=== PATIENT | female | born 1970 | race Hispanic/Latino ===

== ENCOUNTER 2019-02-24 09:00 | Day surgery (SDC) | payer MEDICAID ==
[~2019-02-24] VITALS: Ht 154.9 cm; Wt 143.8 kg
[~2019-02-24 09:00] MED LIST: ACET-2743 PO; AEC81 PO; DULA1.5P SQ; FLUT1DIS3 IH; INSLAN SQ; IRON PO; LISI1TAB29 PO; METF-444 PO; SODIUM CHLORIDE 0.9% 1000ML 1,000 ML IV ONE
[2019-02-24 10:10] VITALS: BP 126/64
[2019-02-24] MEDS ORDERED: FERS325 PO ×2 (10:44)
[2019-02-24] MEDS ORDERED: NAPR250T4 PO ×2 (10:44)
[2019-02-24] MEDS ORDERED: TRAV2.5D OD ×2 (10:44)
[2019-02-24] MEDS ORDERED: OMEP40CA13 PO ×2 (10:44)
[2019-02-24] MEDS ORDERED: EMPA25TA PO ×2 (10:44)
[2019-02-24] MEDS ORDERED: ATOR40TA71 PO ×2 (10:44)
[2019-02-24] MEDS ORDERED: PROPOFOL 10 MG/ML 20ML VIAL IV ONE (11:16)
[2019-02-24 11:33] VITALS: BP 119/70
[2019-02-24 11:40] VITALS: BP 119/71
[2019-02-24 11:45] VITALS: BP 102/61
== END 2019-02-24 12:01 | disposition home or self-care (01) ==
LOC: DAH 09:00 → EDSTATUS 12:47
PROVIDERS: ATTEND Internal Medicine
DX: R10.13 Epigastric pain (principal); K44.9 Diaphragmatic hernia without obstruction or gangrene; K29.40 Chronic atrophic gastritis without bleeding; J45.909 Unspecified asthma, uncomplicated; I10 Essential (primary) hypertension; E78.5 Hyperlipidemia, unspecified; E11.9 Type 2 diabetes mellitus without complications; E66.01 Morbid (severe) obesity due to excess calories; Z79.84 Long term (current) use of oral hypoglycemic drugs; Z79.899 Other long term (current) drug therapy; Z79.82 Long term (current) use of aspirin
CPT/HCPCS: 43239; 82948 ×2; 88305; A4215; A4221; A4222; A4223; A4606; A4615; A4663; J2704; J7030

== ENCOUNTER → 2019-02-25 | Outpatient (CLI) | payer MEDICAID ==
[~2019-02-25] MED LIST changes: +ATOR40TA71 PO; +EMPA25TA PO; +FERS325 PO; +NAPR250T4 PO; +OMEP40CA13 PO; -SODIUM CHLORIDE 0.9% 1000ML 1,000 ML IV ONE; +TRAV2.5D OD
== END | disposition home or self-care (01) ==
LOC: RAH 02-21 10:09
PROVIDERS: ATTEND Internal Medicine
DX: R14.0 Abdominal distension (gaseous) (principal); R11.2 Nausea with vomiting, unspecified; R10.9 Unspecified abdominal pain
CPT/HCPCS: 78264; A9541

== ENCOUNTER → 2019-04-16 | Outpatient (CLI) | payer MEDICAID ==
[~2019-04-16] MED LIST changes: -ACET-2743 PO; -IRON PO
== END | disposition home or self-care (01) ==
LOC: RAH 09:09
PROVIDERS: ATTEND Family Medicine
DX: Z12.31 Encounter for screening mammogram for malignant neoplasm of breast (principal)
CPT/HCPCS: 77067

== ENCOUNTER 2019-09-15 10:28 | Day surgery (SDC) | payer MEDICAID ==
[~2019-09-15] VITALS: Ht 152.4 cm; Wt 140.6 kg
[~2019-09-15 10:28] MED LIST changes: -INSLAN SQ; -NAPR250T4 PO; -OMEP40CA13 PO; +SODIUM CHLORIDE 0.9% 1000ML 1,000 ML IV ONE
[2019-09-15] MEDS ORDERED: PROPOFOL 10 MG/ML 20ML VIAL IV ONE (12:51)
[2019-09-15 13:05] VITALS: BP 110/55
[2019-09-15 13:10] VITALS: BP 116/62
[2019-09-15 13:15] VITALS: BP 116/70
[2019-09-15 13:20] VITALS: BP 120/70
[2019-09-15 13:25] VITALS: BP 118/65
== END 2019-09-15 14:00 | disposition home or self-care (01) ==
LOC: DAH 10:28 → ENDO 10:28
PROVIDERS: ATTEND Surgery
DX: K21.9 Gastro-esophageal reflux disease without esophagitis (principal)
CPT/HCPCS: 43235; 82948 ×2; A4215; A4221; A4222; A4223; A4606; A4620; A4657; A4663; J2704; J7030; 43239

== ENCOUNTER 2019-10-07 06:11 | Day surgery (SDC) | payer MEDICAID ==
[~2019-10-07] VITALS: Ht 154.9 cm; Wt 142.4 kg
[~2019-10-07 06:11] MED LIST changes: -SODIUM CHLORIDE 0.9% 1000ML 1,000 ML IV ONE
[2019-10-07] MEDS ORDERED: SODIUM CHLORIDE 0.9% 1000ML 1,000 ML IV ONE (06:21)
[2019-10-07 07:44] VITALS: BP 127/75
[2019-10-07] MEDS ORDERED: PROPOFOL 10 MG/ML 20ML VIAL IV ONE ×3 (08:27→08:29)
[2019-10-07 08:43] VITALS: BP 107/59
[2019-10-07 08:48] VITALS: BP 115/60
[2019-10-07 08:54] VITALS: BP 118/62
[2019-10-07 09:01] VITALS: BP 119/56
[2019-10-07 09:10] VITALS: BP 137/68
== END 2019-10-07 09:13 | disposition home or self-care (01) ==
LOC: ENDO 06:11
PROVIDERS: ATTEND Internal Medicine
DX: Z12.11 Encounter for screening for malignant neoplasm of colon (principal); Z11.59 Encounter for screening for other viral diseases; D12.0 Benign neoplasm of cecum; K57.30 Diverticulosis of large intestine without perforation or abscess without bleeding; K64.0 First degree hemorrhoids; I10 Essential (primary) hypertension; J45.909 Unspecified asthma, uncomplicated; E11.9 Type 2 diabetes mellitus without complications; E78.5 Hyperlipidemia, unspecified; Z79.82 Long term (current) use of aspirin; Z79.899 Other long term (current) drug therapy; Z79.84 Long term (current) use of oral hypoglycemic drugs; Z82.49 Family history of ischemic heart disease and other diseases of the circulatory system; Z83.3 Family history of diabetes mellitus; Z90.49 Acquired absence of other specified parts of digestive tract
CPT/HCPCS: 36415; 45380; 82948 ×2; 87635; 88305; A4215 ×2; A4221; A4222; A4223; A4606; A4620; A4663; J2704 ×3; J7030; 43200; 43236

== ENCOUNTER 2019-12-19 12:07 | Inpatient (IN) | payer MEDICAID ==
[~2019-12-19] VITALS: Ht 154.9 cm; Wt 122.5 kg
[2019-12-19] MEDS ORDERED: ONDANSETRON HCL 4 MG/2 ML VIAL ONE ×2 (12:28→18:51)
[2019-12-19 12:35] LABS: BASOPHILS % (AUTO) 0.4 % (0.0-5.0); EOSINOPHILS % (AUTO) 0.1 % (0.0-8.0); HEMATOCRIT 43.5 % (36-48); LYMPHOCYTES % (AUTO) 17.6 % (21.0-51.0); MEAN CORPUSCULAR HEMOGLOBIN 27.6 pg (27.0-33.0); MEAN CORPUSCULAR VOLUME 86.5 fL (79-99); MONOCYTES % (AUTO) 8.5 % (3.0-13.0); NEUTROPHILS % (AUTO) 73.1 % (40.0-77.0); PLATELET COUNT (AUTO) 262 K/uL (130-400); RED BLOOD CELL COUNT(AUTO) 5.03 MIL/uL (4.00-5.50); RED CELL DISTRIBUTION WIDTH 16.6 % (11.0-15.5); WHITE BLOOD COUNT (AUTO) 7.6 K/uL (4.8-10.8)
[2019-12-19 13:02] LABS: ALBUMIN 3.5 g/dL (3.5-5.0); BILIRUBIN,TOTAL 1.2 mg/dL (0.2-1.0); CREATININE 0.8 mg/dL (0.5-1.5); POTASSIUM 2.5 mmol/L (3.5-5.1); TOTAL PROTEIN, SERUM 8.4 g/dL (6.0-8.3)
[2019-12-19] MEDS ORDERED: POTASSIUM CHLORIDE 20MEQ/100ML 100 ML IV ONE ×2 (13:15→16:42)
[2019-12-19] MEDS ORDERED: LIDOCAINE HCL-MPF 1% 2ML VIAL ONE (13:15)
[2019-12-19] MEDS ORDERED: MAGNESIUM SULFATE 1 GM in SODIUM CHLORIDE 0.9% 50 ML IV SCH (15:30)
[2019-12-19 15:45] LABS: CREATININE 0.8 mg/dL (0.5-1.5)
[2019-12-19 15:48] LABS: POTASSIUM 2.4 mmol/L (3.5-5.1)
[2019-12-19 17:58] LABS: APPEARANCE,URINE CLOUDY (CLEAR); BILIRUBIN,URINE LARGE (NEGATIVE); COLOR,URINE YELLOW (YELLOW); GLUCOSE, URINE (UA) NEGATIVE (NEGATIVE); KETONES,URINE 40 mg/dL (NEGATIVE); LEUKOCYTE ESTERASE ,URINE MODERATE (NEGATIVE); NITRATE,URINE POSITIVE (NEGATIVE); OCCULT BLOOD,URINE TRACE-LYSED (NEGATIVE); PROTEIN,URINE 30 mg/dL (NEGATIVE)
[2019-12-19 18:10] LABS: BACTERIA,URINE Moderate /HPF (None Seen)
[2019-12-19 18:11] LABS: SQUAMOUS EPITHELIAL CELL,UR Few /HPF (0-2)
[2019-12-19 18:12] LABS: MUCUS,URINE Rare LPF (None Seen)
[2019-12-19] MEDS ORDERED: CEFTRIAXONE SODIUM 1 GM ONE (19:02)
[2019-12-19 19:11] LABS: CREATININE 0.8 mg/dL (0.5-1.5)
[2019-12-19 19:15] LABS: POTASSIUM 2.4 mmol/L (3.5-5.1)
[2019-12-19] MEDS ORDERED: SODIUM CHLORIDE 0.9% 1000ML 1,000 ML IV SCH (19:37)
[2019-12-19] MEDS ORDERED: ACETAMINOPHEN 325 MG TAB PO PRN ×2 (19:45)
[2019-12-19] MEDS ORDERED: IOHEXOL 350 MG/ML 100ML INFUS..BTL IV ONE (20:21)
[2019-12-19] MEDS: CEFTRIAXONE SODIUM 1 GM IVP SCH (20:45)
[2019-12-19] MEDS: INSULIN HUMULIN R 100 UNIT/ML 3ML SQ SCH (21:00)
[2019-12-19 21:25] VITALS: BP 120/56
[2019-12-19 23:32] VITALS: BP 117/61
[2019-12-20] MEDS ORDERED: MAGNESIUM 2GM PREMIX 50ML 50 ML IV ONE
[2019-12-20] MEDS ORDERED: NS-20 MEQ KCL 1000ML 1,000 ML IV ONE (00:08)
[2019-12-20] MEDS: ONDANSETRON HCL 4 MG/2 ML VIAL IV PRN (00:09)
[2019-12-20] MEDS: POTASSIUM CHLORIDE 20MEQ/100ML 100 ML IV PRN ×5 (01:25→22:11)
[2019-12-20 03:46] VITALS: BP 115/59
--- NOTE | 2019-12-20 04:22 | NUR ---
Patient received from ED accompanied by staff to room 329. Patient assisted to bed and made comfortable. Assessment and nursing data base completed. Ns + 20K started on admission. All meds given as ordered. Patient says she give her med list to her ED nurse, but reporting nurse says pt may have given med list to day shift nurse and cannot be found. Patient encouraged to ask family to send med list. She is in stable condition with no acute distress at this time.
[2019-12-20 05:02] LABS: HEMATOCRIT 38.7 % (36-48); MEAN CORPUSCULAR HEMOGLOBIN 27.9 pg (27.0-33.0); MEAN CORPUSCULAR HGB CONC 31.8 g/dL (32.0-36.0); MEAN CORPUSCULAR VOLUME 87.8 fL (79-99); RED BLOOD CELL COUNT(AUTO) 4.41 MIL/uL (4.00-5.50); RED CELL DISTRIBUTION WIDTH 16.7 % (11.0-15.5); WHITE BLOOD COUNT (AUTO) 5.7 K/uL (4.8-10.8)
[2019-12-20 05:30] LABS: CREATININE 0.8 mg/dL (0.5-1.5); MAGNESIUM 3.3 mg/dL (1.80-2.40)
[2019-12-20 05:32] LABS: POTASSIUM 2.3 mmol/L (3.5-5.1)
[2019-12-20] MEDS: POTASSIUM CHLORIDE 10% ELIXIR 20 MEQ/15 ML UDCUP PO PRN (06:07)
[2019-12-20] MEDS: NS-20 MEQ KCL 1000ML 1,000 ML IV SCH ×3 (06:55→16:11)
[2019-12-20] MEDS: INSULIN HUMULIN R 100 UNIT/ML 3ML SQ SCH ×4 (07:07→20:35)
[2019-12-20] MEDS: FAMOTIDINE/PF 20 MG/2 ML VIAL IV SCH ×3 (07:52→20:18)
[2019-12-20 08:37] VITALS: BP 125/72
[2019-12-20 11:41] VITALS: BP 125/70
--- NOTE | 2019-12-20 15:27 | NUR ---
INITIAL: Call placed to patients room. DC discussed w pt, she mentions that she lives w her sister Tanja. Prior to admission she was independent w ambulation and ADLs. She owns a walker and sh chair. Pt was also receiving provider services approx. 21hr/week. Pt states that she was previously attending [facility] however has not gone in over 2weeks. She mentions that her sister Tanja provides transportation where needed and she feels safe and comfortable to return home at [place]. CM to continue to follow and wait for Md recommendations. Addendum: 12/20/19 at 1534 by JESSICA BRUNO Amended: Links added.
[2019-12-20 16:24] VITALS: BP 126/62
[2019-12-20] MEDS: CEFTRIAXONE SODIUM 1 GM IVP SCH (20:18)
[2019-12-20 20:38] VITALS: BP 134/57
--- NOTE | 2019-12-20 21:30 | NUR ---
potassium rechecked: 3.0 Administered potassium per protocol.
[2019-12-20] MEDS ORDERED: LIDOCAINE HCL-MPF 1% 2ML VIAL ONE (22:07)
[2019-12-20 23:45] VITALS: BP 129/64
[2019-12-21] MEDS: NS-20 MEQ KCL 1000ML 1,000 ML IV SCH ×3 (02:00→23:06)
[2019-12-21 04:00] VITALS: BP 118/65
[2019-12-21 05:33] LABS: BASOPHILS % (AUTO) 0.2 % (0.0-5.0); EOSINOPHILS % (AUTO) 1.9 % (0.0-8.0); HEMATOCRIT 39.4 % (36-48); LYMPHOCYTES % (AUTO) 29.1 % (21.0-51.0); MEAN CORPUSCULAR HGB CONC 31.7 g/dL (32.0-36.0); MEAN CORPUSCULAR VOLUME 88.3 fL (79-99); MONOCYTES % (AUTO) 9.9 % (3.0-13.0); NEUTROPHILS % (AUTO) 58.7 % (40.0-77.0); PLATELET COUNT (AUTO) 172 K/uL (130-400); RED BLOOD CELL COUNT(AUTO) 4.46 MIL/uL (4.00-5.50); RED CELL DISTRIBUTION WIDTH 16.9 % (11.0-15.5); WHITE BLOOD COUNT (AUTO) 4.2 K/uL (4.8-10.8)
[2019-12-21] MEDS: INSULIN HUMULIN R 100 UNIT/ML 3ML SQ SCH ×2 (05:36→11:30)
[2019-12-21 06:24] LABS: HEMOGLOBIN A1C 5.9 % (4.0-6.0)
[2019-12-21 06:30] LABS: ALBUMIN 2.6 g/dL (3.5-5.0); BILIRUBIN,TOTAL 0.7 mg/dL (0.2-1.0); CREATININE 0.7 mg/dL (0.5-1.5); TOTAL PROTEIN, SERUM 6.3 g/dL (6.0-8.3)
--- NOTE | 2019-12-21 06:34 | NUR ---
potassium: 2.9 Covered potassium per protocol. Day shift RN made aware. No apparent distress / discomfort noted.
[2019-12-21 06:35] LABS: POTASSIUM 2.9 mmol/L (3.5-5.1)
[2019-12-21] MEDS ORDERED: LIDOCAINE HCL-MPF 1% 2ML VIAL ONE (06:43)
[2019-12-21] MEDS: POTASSIUM CHLORIDE 20MEQ/100ML 100 ML IV PRN ×3 (06:45→22:13)
[2019-12-21] MEDS: FAMOTIDINE/PF 20 MG/2 ML VIAL IV SCH ×2 (08:13→20:02)
[2019-12-21 09:05] VITALS: BP 136/73
[2019-12-21 11:43] VITALS: BP 125/59
[2019-12-21 16:23] VITALS: BP 149/73
[2019-12-21 19:00] VITALS: BP 137/71
[2019-12-21] MEDS ORDERED: LIDOCAINE HCL-MPF 1% 2ML VIAL IV SCH (20:00)
[2019-12-21] MEDS: CEFTRIAXONE SODIUM 1 GM IVP SCH (20:02)
[2019-12-22] VITALS: BP 145/77
[2019-12-22 03:43] VITALS: BP 139/75
[2019-12-22 06:26] LABS: BASOPHILS % (AUTO) 0.4 % (0.0-5.0); EOSINOPHILS % (AUTO) 2.3 % (0.0-8.0); LYMPHOCYTES % (AUTO) 27.5 % (21.0-51.0); MEAN CORPUSCULAR HEMOGLOBIN 27.9 pg (27.0-33.0); MEAN CORPUSCULAR VOLUME 89.9 fL (79-99); NEUTROPHILS % (AUTO) 60.4 % (40.0-77.0); PLATELET COUNT (AUTO) 173 K/uL (130-400); RED BLOOD CELL COUNT(AUTO) 4.45 MIL/uL (4.00-5.50); RED CELL DISTRIBUTION WIDTH 17.1 % (11.0-15.5); WHITE BLOOD COUNT (AUTO) 4.8 K/uL (4.8-10.8)
[2019-12-22] MEDS: ONDANSETRON HCL 4 MG/2 ML VIAL IV PRN ×3 (07:00→20:47)
[2019-12-22 07:39] VITALS: BP 122/55
[2019-12-22 08:01] LABS: ALBUMIN 2.6 g/dL (3.5-5.0); BILIRUBIN,TOTAL 0.5 mg/dL (0.2-1.0); CREATININE 0.8 mg/dL (0.5-1.5); POTASSIUM 3.8 mmol/L (3.5-5.1); TOTAL PROTEIN, SERUM 6.3 g/dL (6.0-8.3)
[2019-12-22] MEDS: FAMOTIDINE/PF 20 MG/2 ML VIAL IV SCH ×2 (10:11→20:47)
[2019-12-22 10:24] VITALS: BP 128/69
[2019-12-22] MEDS: NS-20 MEQ KCL 1000ML 1,000 ML IV SCH ×2 (12:26→20:47)
--- NOTE | 2019-12-22 15:16 | NUR ---
Transfer Patient Covid results negative and she has been transfered to [facility], AAOX4 and condition stable.
[2019-12-22 16:00] VITALS: BP 123/64
[2019-12-22 19:30] VITALS: BP 153/75
[2019-12-22] MEDS: CEFTRIAXONE SODIUM 1 GM IVP SCH (20:47)
[2019-12-22] MEDS: HYDROMORPHONE 1 MG/1 ML AMP IVP PRN (22:04)
[2019-12-23] VITALS (7 sets, daily range): BP systolic 136–163; BP diastolic 68–87
[2019-12-23] MEDS: HYDROMORPHONE 1 MG/1 ML AMP IVP PRN ×3 (00:47→04:59)
[2019-12-23] MEDS: ONDANSETRON HCL 4 MG/2 ML VIAL IV PRN (01:59)
[2019-12-23] MEDS: PROMETHAZINE HCL 25 MG/ML 1ML AMPULE IM SCH (02:56)
[2019-12-23 05:06] LABS: BASOPHILS % (AUTO) 0.3 % (0.0-5.0); EOSINOPHILS % (AUTO) 2.1 % (0.0-8.0); HEMATOCRIT 37.3 % (36-48); LYMPHOCYTES % (AUTO) 9.3 % (21.0-51.0); MEAN CORPUSCULAR HEMOGLOBIN 28.6 pg (27.0-33.0); MEAN CORPUSCULAR HGB CONC 31.6 g/dL (32.0-36.0); MEAN CORPUSCULAR VOLUME 90.3 fL (79-99); MONOCYTES % (AUTO) 6.4 % (3.0-13.0); NEUTROPHILS % (AUTO) 81.4 % (40.0-77.0); PLATELET COUNT (AUTO) 133 K/uL (130-400); RED BLOOD CELL COUNT(AUTO) 4.13 MIL/uL (4.00-5.50); RED CELL DISTRIBUTION WIDTH 17.4 % (11.0-15.5); WHITE BLOOD COUNT (AUTO) 3.8 K/uL (4.8-10.8)
[2019-12-23 05:33] LABS: ALBUMIN 2.6 g/dL (3.5-5.0); BILIRUBIN,TOTAL 0.5 mg/dL (0.2-1.0); CREATININE 0.8 mg/dL (0.5-1.5); POTASSIUM 3.5 mmol/L (3.5-5.1); TOTAL PROTEIN, SERUM 6.3 g/dL (6.0-8.3)
[2019-12-23] MEDS: NS-20 MEQ KCL 1000ML 1,000 ML IV SCH (06:43)
[2019-12-23] MEDS: FAMOTIDINE/PF 20 MG/2 ML VIAL IV SCH ×2 (08:34→20:03)
[2019-12-23] MEDS: MEROPENEM 1 GM VIAL IVP SCH ×2 (11:43→18:53)
[2019-12-23] MEDS: METOCLOPRAMIDE 10 MG/2 ML VIAL IVP SCH ×2 (11:43→16:52)
--- NOTE | 2019-12-23 12:01 | NUR ---
RD NOTIFICATION Pt admitted with Hypokalemia, vomiting. Hx of Bariatric bypass procedure x 1-2mos. ago at [facility]. Pt received Bariatric nutrition education with [facility] dietitian, as per Pt. Patient reports history of Gastritis prior to procedure. Post procedure Gastritis medication was changed, Pt reports having nausea soon after finishing meals despite multiple medication modifications. Pt reports tolerating Clear Liquids post procedure. Pt did not transition from clear to full liquids, but proceeded directly to soft solid foods. Pt reports strong gag reflex to activities such as brushing teeth. Pt with intolerance to dairy products. Pt also says she vomits/gags up phlegm which is common for her and possibly related to her history of asthma. Recommend 60mL ProMod BID RD to monitor for tolerance.
[2019-12-23 12:07] LABS: INR 1.07 (0.85-1.15); PARTIAL THROMBOPLASTIN TIME 27.6 SEC (26.3-35.5); PROTHROMBIN TIME 11.5 SEC (9.6-11.6)
--- NOTE | 2019-12-23 14:32 | NUR ---
picc line 5 [place] 2 lumen picc line inserted to right upper arm using sterile technique. pt jerome well ,with no adverse reactions. picc line a 44cm insertion site and 6 cm exposed. sterile dressing applied to site. both ports flushed without difficulty and good blood return on both ports. pt denies any pain, numbness, tingling or any other discomforts to right arm. report given to primary nurse Daniella Adair LVN. picc line ready to use per xochitl kay protocol. tip placed at 1/3 of [facility] OR AT [facility]
[2019-12-23] MEDS: LACTATED RINGERS 1000ML 1,000 ML IV SCH (16:52)
[2019-12-23] MEDS: HYDROMORPHONE HCL 2 MG/ML VIAL IVP PRN ×2 (21:31→22:55)
[2019-12-24] MEDS: HYDROMORPHONE HCL 2 MG/ML VIAL IVP PRN ×4 (00:44→04:56)
[2019-12-24] MEDS: PROMETHAZINE HCL 25 MG/ML 1ML AMPULE IM SCH (01:56)
[2019-12-24] MEDS: MEROPENEM 1 GM VIAL IVP SCH ×3 (02:54→18:32)
[2019-12-24 03:56] VITALS: BP 136/72
[2019-12-24 06:00] LABS: ALBUMIN 2.6 g/dL (3.5-5.0); BILIRUBIN,TOTAL 0.5 mg/dL (0.2-1.0); CREATININE 0.8 mg/dL (0.5-1.5); MAGNESIUM 1.3 mg/dL (1.80-2.40); POTASSIUM 3.2 mmol/L (3.5-5.1); TOTAL PROTEIN, SERUM 6.4 g/dL (6.0-8.3)
[2019-12-24] MEDS: POTASSIUM CHLORIDE 10% ELIXIR 20 MEQ/15 ML UDCUP PO PRN (06:04)
[2019-12-24 08:00] VITALS: BP 150/78
[2019-12-24] MEDS ORDERED: MAGNESIUM 2GM PREMIX 50ML 50 ML IV SCH (08:45)
[2019-12-24] MEDS ORDERED: POTASSIUM CHLORIDE 10% ELIXIR 20 MEQ/15 ML UDCUP PO SCH (08:45)
[2019-12-24] MEDS: LACTATED RINGERS 1000ML 1,000 ML IV SCH ×2 (09:11→22:48)
[2019-12-24] MEDS: FAMOTIDINE/PF 20 MG/2 ML VIAL IV SCH ×2 (09:11→21:15)
[2019-12-24] MEDS: METOCLOPRAMIDE 10 MG/2 ML VIAL IVP SCH ×3 (09:11→17:10)
[2019-12-24 12:00] VITALS: BP 149/68
[2019-12-24 16:00] VITALS: BP 144/79
[2019-12-24 16:51] LABS: MAGNESIUM 1.9 mg/dL (1.80-2.40); POTASSIUM 3.3 mmol/L (3.5-5.1)
[2019-12-24] MEDS: POTASSIUM CHLORIDE 20MEQ/100ML 100 ML IV PRN (18:32)
[2019-12-24 19:30] VITALS: BP 154/76
[2019-12-25] VITALS (7 sets, daily range): BP systolic 108–153; BP diastolic 52–76
[2019-12-25] MEDS: PROMETHAZINE HCL 25 MG/ML 1ML AMPULE IM SCH (02:15)
[2019-12-25] MEDS: MEROPENEM 1 GM VIAL IVP SCH ×3 (02:30→20:43)
[2019-12-25] MEDS: LACTATED RINGERS 1000ML 1,000 ML IV SCH (03:04)
[2019-12-25 05:33] LABS: CREATININE 0.6 mg/dL (0.5-1.5); MAGNESIUM 1.6 mg/dL (1.80-2.40); POTASSIUM 3.1 mmol/L (3.5-5.1)
[2019-12-25] MEDS: METOCLOPRAMIDE 10 MG/2 ML VIAL IVP SCH ×3 (06:18→16:47)
[2019-12-25] MEDS: POTASSIUM CHLORIDE 20MEQ/100ML 100 ML IV PRN ×2 (06:19→09:58)
[2019-12-25] MEDS ORDERED: POTASSIUM CHLORIDE 20 MEQ ERTAB PO SCH (08:45)
[2019-12-25] MEDS: FAMOTIDINE/PF 20 MG/2 ML VIAL IV SCH ×2 (09:56→20:44)
[2019-12-25] MEDS: MAGNESIUM 2GM PREMIX 50ML 50 ML IV SCH (10:10)
--- NOTE | 2019-12-25 13:22 | NUR ---
Nutrition F/U: Pt with gatric bypass x 1 month ago. admitted with nausea/vomiting and low potassium levels, dumping syndrome. Pt current diet on bariatric phase V diet, high protein, no carbs. Pt stated she is eating better but continues to have phlegm spit ups after meals or before bedtime. Pt not drinking promod, she dislikes taste. At home she would take a multivitamin and b complex. LBM 8/10. Recommend: -continue with phase V diet, no concentrated sweets, high protein, no acidic foods. -Will change promod to protein powder (propass). Spoke with patient she is to mix with oatmeal or cream soups. verbalized understanding. -multivitamin to be initiated and b complex and continue post discharge. -lab draw Vit D, evaluate levels Addendum: 12/25/19 at [address] Amended: Links added.
[2019-12-25] MEDS ORDERED: DIATR MEGLU/DIATRIZOATE SODIUM 30 ML BOTTLE ONE (14:43)
[2019-12-25 19:32] LABS: MAGNESIUM 1.7 mg/dL (1.80-2.40); POTASSIUM 3.1 mmol/L (3.5-5.1)
[2019-12-25] MEDS: MAGNESIUM OXIDE 400 MG TABLET PO SCH (20:44)
[2019-12-25] MEDS: POTASSIUM CHLORIDE 10 MEQ/TAB.SA PO SCH (20:44)
[2019-12-26 03:18] VITALS: BP 130/72
[2019-12-26] MEDS: MEROPENEM 1 GM VIAL IVP SCH ×3 (04:39→18:55)
[2019-12-26] MEDS: LACTATED RINGERS 1000ML 1,000 ML IV SCH (04:40)
[2019-12-26 05:29] LABS: BASOPHILS % (AUTO) 0.3 % (0.0-5.0); EOSINOPHILS % (AUTO) 1.8 % (0.0-8.0); HEMATOCRIT 35.7 % (36-48); LYMPHOCYTES % (AUTO) 25.1 % (21.0-51.0); MEAN CORPUSCULAR HEMOGLOBIN 28.7 pg (27.0-33.0); MEAN CORPUSCULAR HGB CONC 32.8 g/dL (32.0-36.0); MEAN CORPUSCULAR VOLUME 87.5 fL (79-99); MONOCYTES % (AUTO) 11.6 % (3.0-13.0); NEUTROPHILS % (AUTO) 60.9 % (40.0-77.0); PLATELET COUNT (AUTO) 137 K/uL (130-400); RED BLOOD CELL COUNT(AUTO) 4.08 MIL/uL (4.00-5.50); RED CELL DISTRIBUTION WIDTH 17.2 % (11.0-15.5); WHITE BLOOD COUNT (AUTO) 3.3 K/uL (4.8-10.8)
[2019-12-26 05:46] LABS: CREATININE 0.7 mg/dL (0.5-1.5); MAGNESIUM 1.7 mg/dL (1.80-2.40); POTASSIUM 3.1 mmol/L (3.5-5.1)
[2019-12-26 06:43] LABS: CREATININE,URINE RANDOM 23 mg/dL (30-135); POTASSIUM,URINE RANDOM 12 mmol/L (25-125); SODIUM,URINE RANDOM 74 mmol/l (40-220)
[2019-12-26 08:00] VITALS: BP 124/78
[2019-12-26] MEDS: FAMOTIDINE/PF 20 MG/2 ML VIAL IV SCH ×2 (11:52→22:04)
[2019-12-26] MEDS: MAGNESIUM OXIDE 400 MG TABLET PO SCH ×2 (11:53→22:05)
[2019-12-26] MEDS: POTASSIUM CHLORIDE 10 MEQ/TAB.SA PO SCH ×2 (11:53→22:05)
[2019-12-26] MEDS: MULTIVITAMIN TABLET PO SCH (11:53)
[2019-12-26] MEDS: METOCLOPRAMIDE 10 MG/2 ML VIAL IVP SCH ×2 (11:57→18:55)
[2019-12-26] MEDS: POTASSIUM CHLORIDE 20 MEQ ERTAB PO PRN ×3 (11:58→18:56)
[2019-12-26 12:00] VITALS: BP 128/69
[2019-12-26] MEDS: MAGNESIUM 2GM PREMIX 50ML 50 ML IV SCH (12:56)
[2019-12-26 16:00] VITALS: BP 136/75
[2019-12-26 21:12] VITALS: BP 149/73
[2019-12-27 00:29] VITALS: BP 146/71
[2019-12-27] MEDS: PROMETHAZINE HCL 25 MG/ML 1ML AMPULE IM SCH (02:15)
[2019-12-27] MEDS: LACTATED RINGERS 1000ML 1,000 ML IV SCH ×2 (02:28→12:24)
[2019-12-27] MEDS: MEROPENEM 1 GM VIAL IVP SCH ×3 (03:06→21:04)
[2019-12-27 03:33] VITALS: BP 137/75
[2019-12-27] MEDS: METOCLOPRAMIDE 10 MG/2 ML VIAL IVP SCH ×3 (07:01→18:31)
[2019-12-27 08:00] VITALS: BP 128/67
[2019-12-27] MEDS: FAMOTIDINE/PF 20 MG/2 ML VIAL IV SCH ×2 (09:00→21:03)
[2019-12-27 10:13] LABS: CREATININE 0.6 mg/dL (0.5-1.5); MAGNESIUM 1.6 mg/dL (1.80-2.40); POTASSIUM 3.2 mmol/L (3.5-5.1)
[2019-12-27] MEDS: MULTIVITAMIN TABLET PO SCH (11:08)
[2019-12-27] MEDS: POTASSIUM CHLORIDE 10 MEQ/TAB.SA PO SCH ×2 (11:09→21:03)
[2019-12-27] MEDS: MAGNESIUM OXIDE 400 MG TABLET PO SCH ×2 (11:09→21:03)
[2019-12-27 12:00] VITALS: BP 139/68
[2019-12-27] MEDS: MAGNESIUM 2GM PREMIX 50ML 50 ML IV SCH (14:27)
[2019-12-27 16:00] VITALS: BP 142/82
[2019-12-27] MEDS ORDERED: AMILORIDE HCL 5 MG TABLET PO SCH (17:45)
[2019-12-27] MEDS: ENOXAPARIN SODIUM 40 MG/0.4 ML SYRINGE SQ SCH (18:32)
[2019-12-27 20:21] VITALS: BP 166/85
[2019-12-28 00:34] VITALS: BP 145/72
[2019-12-28] MEDS: PROMETHAZINE HCL 25 MG/ML 1ML AMPULE IM SCH (02:15)
[2019-12-28] MEDS: MEROPENEM 1 GM VIAL IVP SCH ×3 (03:30→17:47)
[2019-12-28] MEDS: LACTATED RINGERS 1000ML 1,000 ML IV SCH ×3 (03:31→21:27)
[2019-12-28 04:22] VITALS: BP 147/73
[2019-12-28 07:01] LABS: CREATININE 0.6 mg/dL (0.5-1.5); MAGNESIUM 1.8 mg/dL (1.80-2.40); POTASSIUM 3.1 mmol/L (3.5-5.1)
[2019-12-28 08:00] VITALS: BP 150/91
[2019-12-28] MEDS: MAGNESIUM OXIDE 400 MG TABLET PO SCH ×2 (08:33→21:26)
[2019-12-28] MEDS: METOCLOPRAMIDE 10 MG/2 ML VIAL IVP SCH ×3 (08:33→17:43)
[2019-12-28] MEDS: POTASSIUM CHLORIDE 10 MEQ/TAB.SA PO SCH ×2 (08:34→21:26)
[2019-12-28] MEDS: MULTIVITAMIN TABLET PO SCH (08:34)
[2019-12-28] MEDS: ENOXAPARIN SODIUM 40 MG/0.4 ML SYRINGE SQ SCH (08:39)
[2019-12-28] MEDS: FAMOTIDINE/PF 20 MG/2 ML VIAL IV SCH ×2 (09:01→21:26)
[2019-12-28] MEDS: MAGNESIUM 2GM PREMIX 50ML 50 ML IV SCH (09:57)
[2019-12-28] MEDS ORDERED: AMLODIPINE BESYLATE 5 MG TAB PO SCH (10:45)
[2019-12-28 12:10] VITALS: BP 133/72
--- NOTE | 2019-12-28 12:10 | NUR ---
[facility]: Spoke w pt this am regarding Md order/recommendations for IV ABX @ [facility]. YARELY/PC consent obtained for [facility]. Orders/clinical/Urine culture results faxed to [facility]. CM to continue to follow for acceptance/chair time.
[2019-12-28 16:00] VITALS: BP 123/67
[2019-12-28 20:28] VITALS: BP 159/93
[2019-12-28] MEDS: POTASSIUM CHLORIDE 20 MEQ ERTAB PO PRN (21:27)
--- NOTE | 2019-12-28 21:30 | NUR ---
MEDS SHIFT ASSESSMENT DONE, PLEASE REFER TO CHART. DUE MEDS ADMINISTERED, TOLERATED WELL. CALL LIGHT WITHIN REACH. WILL MONITOR PT. Addendum: 12/29/19 at 0117 by AYESHA BRITO RN RN Amended: Links added.
[2019-12-29 00:11] VITALS: BP 152/70
[2019-12-29] MEDS: POTASSIUM CHLORIDE 20 MEQ ERTAB PO PRN ×2 (00:54→05:30)
--- NOTE | 2019-12-29 01:51 | NUR ---
ROUNDS PT RESTING WELL. NO DISTRESS NOTED. KEPT UNDISTURBED FOR NOW. WILL MONITOR PT.
[2019-12-29] MEDS: MEROPENEM 1 GM VIAL IVP SCH ×3 (02:35→17:17)
[2019-12-29 03:44] VITALS: BP 136/72
--- NOTE | 2019-12-29 04:23 | NUR ---
LAB AWAKENED PT TO DRAW BLOOD. BLOOD DRAWN FROM PICC LINE THEN SENT TO LAB FOR ANALYSIS. BOTH PORTS FLUSHES WELL WITH GOOD BLOOD RETURN.
[2019-12-29 05:16] LABS: MAGNESIUM 1.8 mg/dL (1.80-2.40); POTASSIUM 3.4 mmol/L (3.5-5.1)
[2019-12-29] MEDS: MAGNESIUM 2GM PREMIX 50ML 50 ML IV SCH (05:30)
[2019-12-29] MEDS: METOCLOPRAMIDE 10 MG/2 ML VIAL IVP SCH ×3 (05:30→17:18)
[2019-12-29 08:15] VITALS: BP 153/84
[2019-12-29] MEDS: MAGNESIUM OXIDE 400 MG TABLET PO SCH (08:56)
[2019-12-29] MEDS: MULTIVITAMIN TABLET PO SCH (08:56)
[2019-12-29] MEDS: POTASSIUM CHLORIDE 10 MEQ/TAB.SA PO SCH (08:57)
[2019-12-29] MEDS: FAMOTIDINE/PF 20 MG/2 ML VIAL IV SCH (08:57)
[2019-12-29] MEDS: ENOXAPARIN SODIUM 40 MG/0.4 ML SYRINGE SQ SCH (08:58)
[2019-12-29] MEDS: LACTATED RINGERS 1000ML 1,000 ML IV SCH (08:59)
[2019-12-29] MEDS ORDERED: AMLODIPINE BESYLATE 5 MG TAB PO SCH (09:00)
[2019-12-29 11:46] VITALS: BP 123/78
--- NOTE | 2019-12-29 16:00 | NUR ---
CONFIRMED [facility] FOR TOMORROW 12/29 AT 1130. MD MELONY, AND PINEDA AWARE Addendum: 12/30/19 at 0758 by MIRIAM LIMA RN CM Amended: Links added.
[2019-12-29 17:08] VITALS: BP 122/80
--- NOTE | 2019-12-29 18:00 | NUR ---
DISCHARGE PATIENT GIVEN DISCHARGE INSTRUCTIONS AND VERBALIZED UNDERSTANDING, TELEMETRY REMOVED AND UNIT NOTIFIED. REVIEWED MEDICATIONS AND FOLLOW-UP APPOINTMENT, NO QUESTIONS OR CONCERNS VOICED. PIC LINE DRESSING CHANGED. DRY INTACT AND DRESSING DATED. PATIENT CHANGING AND HAS CALL FOR RIDE.
--- NOTE | 2019-12-29 19:15 | NUR ---
PATIENT TRANSPORTED TO [facility] VIA WHEELCHAIR TO MEET FAMILY AND LEFT FOR HOME
== END 2019-12-29 19:35 | disposition home or self-care (01) | DRG 254 ==
LOC: EDH 12:07 → EDHIP 12:08 → OBSVTOIN 14:45 → 3AH 21:04 → 3DH 12-22 14:21
PROVIDERS: ADMIT Internal Medicine; ATTEND Internal Medicine
PROC: 05HY33Z Insertion of Infusion Device into Upper Vein, Percutaneous Approach (ICD-10-PCS; principal; 2019-12-23)
DX: K91.1 Postgastric surgery syndromes (principal); N17.9 Acute kidney failure, unspecified; E87.6 Hypokalemia; E66.01 Morbid (severe) obesity due to excess calories; N39.0 Urinary tract infection, site not specified; E78.5 Hyperlipidemia, unspecified; N83.201 Unspecified ovarian cyst, right side; Z68.43 Body mass index [BMI] 50.0-59.9, adult; Z20.828 Contact with and (suspected) exposure to other viral communicable diseases; N18.9 Chronic kidney disease, unspecified; E11.22 Type 2 diabetes mellitus with diabetic chronic kidney disease; I12.9 Hypertensive chronic kidney disease with stage 1 through stage 4 chronic kidney disease, or unspecified chronic kidney disease; B96.1 Klebsiella pneumoniae [K. pneumoniae] as the cause of diseases classified elsewhere; E83.42 Hypomagnesemia; Z16.24 Resistance to multiple antibiotics; Z98.84 Bariatric surgery status; Z91.19 Patient's noncompliance with other medical treatment and regimen; Z90.49 Acquired absence of other specified parts of digestive tract; Z87.440 Personal history of urinary (tract) infections; Z82.3 Family history of stroke; Z83.3 Family history of diabetes mellitus; Z82.49 Family history of ischemic heart disease and other diseases of the circulatory system; Z82.5 Family history of asthma and other chronic lower respiratory diseases
CPT/HCPCS: 36415; 74176; 74177; 80048; 80053; 80061; 81001; 82150; 82550; 82570; 82607; 82948; 83036; 83690; 83735; 83935; 84105; 84132; 84133; 84300; 84484; 85025; 85027; 85610; 85730; 87077; 87088; 87186; 87426; 93005; C1894; G0378; J0696; J1170; J1650; J2185; J2405; J2550; J2765; J3475; J3480; J3490; J7120; Q9963; Q9967; U0003